=== PATIENT | male | born 1955 | race Caucasian/White ===

== ENCOUNTER → 2020-06-22 | Outpatient (CLI) | payer OTHER, SELFPAY ==
[~2020-06-22] MED LIST: ASPIRIN CHEWABL81 MG PO; CENTRUM SILVER1 EAC2 PO; FLAGYL500 MG PO; FLEXERIL 10 MG10 MG PO; GLUCOPHAGE 500500 MG PO; IMDUR ER TAB 6060 MG PO; IPRAT-ALBUT 0.5-3 ML INH; KRILL OIL 1,001 EAC1 PO; LEVAQUIN500 MG PO; LIPITOR TAB 2020 MG PO; LOPRESSOR 25 MG25 MG PO; MEDROL4 MG PO; NITROSTAT0.4 MG SL; NORCO 7.5-3251 EACH PO; NORVASC10 MG PO; OMEPRAZOLE20 MG PO; REVATIO 20 MG T20 MG PO; SINGULAIR10 MG PO; VENTOLIN HFA 66.7 GM INH
== END ==
LOC: ECHO 09:35
DX: I25.10 Atherosclerotic heart disease of native coronary artery without angina pectoris (principal); I10 Essential (primary) hypertension; I49.5 Sick sinus syndrome
CPT/HCPCS: ECHO; 93306